=== PATIENT | male | born 1965 | race Caucasian/White ===

== ENCOUNTER 2021-02-13 10:45 | Outpatient (REF) | payer SELFPAY ==
[2021-02-13 12:47] LABS: ALT 55 U/L (16-63); AST 33 U/L (15-37); Albumin 3.9 g/dL (3.4-5.0); Alkaline Phosphatase 76 U/L (46-116); Bilirubin, Direct 0.2 mg/dL (0.0-0.2); Bilirubin, Total 0.8 mg/dL (0.2-1.0); CREATININE 0.9 mg/dL (0.70-1.30); Potassium 4.5 mmol/L (3.5-5.1); Total Protein 7.5 g/dL (6.4-8.2)
[2021-02-13 12:56] LABS: Hemoglobin A1C 8.9 % (<5.7)
[2021-02-13 22:29] LABS: Calculated LDL 137 mg/dL (<100); Cholesterol 218 mg/dL (<200); HDL Cholesterol 65 mg/dL (40-60); Triglyceride 84 mg/dL (<150)
== END 2021-02-13 10:46 | disposition home or self-care (01) ==
LOC: LBN 10:45
PROVIDERS: PCP Nurse Practitioner; Visit Provider Nurse Practitioner
DX: E10.9 Type 1 diabetes mellitus without complications (principal); M54.2 Cervicalgia; R74.8 Abnormal levels of other serum enzymes; E78.5 Hyperlipidemia, unspecified; I10 Essential (primary) hypertension
CPT/HCPCS: 80061; 80076; 82565; 83036; 84132